=== PATIENT | female | born 1955 | race Caucasian/White ===

== ENCOUNTER 2016-08-04 09:35 | Emergency (ER) | payer OTHER ==
[~2016-08-04] VITALS: Ht 157.5 cm; Wt 106.6 kg
--- NOTE | 2016-08-04 09:46 | ED INFLUENZA/URI COMPLAINT ---
History of Present Illness General Chief Complaint: Dyspnea (COPD, CHF, Other) Stated Complaint: SOB/DIZZY Source: patient, family, old records Exam Limitations: no limitations Allergies Coded Allergies: Penicillins (UNKNOWN 08/04/16) Triage Note: PT TO ED FOR ASTHMA EXACERBATION, +SMOKER, REPORTING SHE USED HER INAHLER THIS MORNING WITH NO RELEF. SPEAKING IN FULL, CLEAR SENTENCES IN TRIAGE, 02 SAT 97%. HPI: This is a 61-year-old female with past medical history of asthma and COPD who presented to the emergency department the morning of 08/04/2016 complaining of shortness of breath and cough. Patient endorses that her symptoms began 4 days ago and she is becoming increasingly dyspneic. She also endorses dyspnea on exertion. She was started on an MARIVEL inhibitor however has had to stop this owing to significant side effects. She denies any fever nausea vomiting although does endorse subjective chills. Also endorses decreased appetite. She is a current every day smoker. (PAIGE VERAS,TIMOTHY) Vital Signs & Intake/Output Vital Signs & Intake/Output Vital Signs Date Time Temp Pulse Resp B/P B/P Pulse O2 O2 Flow FiO2 Mean Ox Delivery Rate 08/04 1117 98.6 76 18 145/84 98 Room Air 08/04 1025 95 08/04 0944 97.9 82 18 161/75 97 Room Air Reconcile Medications Albuterol Sulfate (Proair Hfa) 90 MCG HFA.AER.AD 2 PUF INH Q4-6 PRN PRN SHORTNESS OF BREATH (Reported) Albuterol Sulfate (Proair Hfa) 90 MCG HFA.AER.AD 2 PUF INH Q4-6 PRN PRN SOB Fluticasone/Salmeterol (Advair 500-50 Diskus) 500 MCG-50 MCG/DOSE BLST.W.DEV 1 PUF INH BID BREATHING PROBLEMS (Reported) Oxycodone HCl 30 MG TABLET 1 TAB PO 3-4XDP PAIN (Reported) Prednisone 10 MG TABLET 1 TAB PO BID COPD Exacerbation on 08/05 take 5 tablets on 08/06 take 4 tablets on 08/07 take 3 tablets on 08/08 take 2 tablets on 08/09 take 1 tablet and then stop Triage Nurses Notes Reviewed? yes LMP (ages 10-50): post menopausal : No Patient currently breastfeeds: No (LESLIE VERASMESHA) Past History Travel History Traveled to [place] past 21 day No Medical History Any Pertinent Medical History? 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 No (MESHA NELSON MD) Review of Systems Review of Systems Constitutional: Reports: chills. Denies: diaphoresis, fever, malaise, weakness. Respiratory: Reports: cough, short of breath. Denies: hemoptysis, orthopnea, sputum production, stridor. Cardiovascular: Denies: chest pain, edema, orthopena, palpitations. GI: Denies: abdominal pain, bloating, constipation, diarrhea, distention. Genitourinary: Denies: discharge, dysuria, frequency, hematuria, hesitation, nocturia. Musculoskeletal: Denies: back pain, gout, joint pain, joint swelling, muscle pain. Skin: Denies: change in skin color, change in hair/nails, dryness, erythema, jaundice, lesions. (TIMOTHY GIBSON MD) Review of Systems EENTM: Reports: no symptoms. Neurological/Psychological: Reports: no symptoms. Hematologic/Endocrine: Reports: no symptoms. Immunologic/Allergic: Reports: no symptoms. All Other Systems: Reviewed and Negative (MESHA NELSON MD) Physical Exam Physical Exam General Appearance: well developed/nourished, no apparent distress, alert, awake Head: atraumatic Eyes: Bilateral: PERRL. Respiratory: rhonchi (Mild Rhonchi), wheezing, Increased Breath Sounds Cardiovascular: regular rate/rhythm Gastrointestinal: normal bowel sounds, soft, non-tender Extremities: Edema 1+ Neurologic/Psych: no motor/sensory deficits, awake, alert, oriented x 3 (TIMOTHY GIBSON MD) Physical Exam Ears, Nose, Throat: normal ENT inspection, moist mucous membrane Neck: normal inspection, supple, full range of motion, no midline tenderness Back: normal inspection, normal range of motion Reflexes: 2+: bicep (R), bicep (L). Skin: intact, normal color Lymphatic: no anterior cervical brittany Core Measures Severe Sepsis Present: No Septic Shock Present: No (MESHA NELSON MD) Progress Plan of Care: Orders Procedure Date/time Status AEROSOL (GEN) 08/04 1033 Complete Initial ED EKG: normal axis (TIMOTHY GIBSON MD) Differential Diagnosis: influenza, pneumonia, sinusitis Diagnostic Imaging: Viewed by Me: Radiology Read. Discussed w/RAD: Radiology Read. CXR Impression: no acute abnormality, no infiltrates (MESHA NELSON MD) Departure Departure Disposition: HOME OR SELF CARE Condition: Stable Clinical Impression Primary Impression: COPD exacerbation Referrals: CHIRAG VERAS,DOMI Avilez (PCP/Family) Additional Instructions: Please follow-up with your primary care physician in the next 24 - 48 hours. Please ensure he speak with your primary care physician regarding starting you on a blood pressure medication. Please also inform your primary care physician that he may benefit from referral to sql etl developer for paroxysmal nocturnal dyspnea. Should your symptoms worsen and you develop fever, chills, nausea or vomiting, present to the emergency department for additional follow-up. Please take medications as prescribed. Please maintain hydration with warm fluids. Departure Forms: Customer Survey General Discharge Information Prescriptions: Current Visit Scripts Prednisone 1 TAB PO BID #15 TAB on 08/05 take 5 tablets on 08/06 take 4 tablets on 08/07 take 3 tablets on 08/08 take 2 tablets on 08/09 take 1 tablet and then stop Albuterol Sulfate (Proair Hfa) 2 PUF INH Q4-6 PRN PRN SOB #1 INHAL (TIMOTHY GIBSON MD) Resident Co-Sign Statement Statement: ED Attending supervision documentation- x I saw and evaluated the patient. I have also reviewed all the pertinent lab results and diagnostic results. I agree with the findings and the plan of care as documented in the Resident's documentation. [] I have reviewed the ED Record and agree with the Resident's documentation. [] Additions or exceptions (if any) to the Resident's note and plan are summarized below: [] (MESHA NELSON MD)
[2016-08-04] MEDS ORDERED: PROAIR HFA8.5 GM INH ×2 (10:04→11:12)
[2016-08-04] MEDS ORDERED: OXYCODONE HCL30 M1 PO (10:04)
[2016-08-04] MEDS ORDERED: ADVAIR 500-501 EACH INH (10:04)
--- NOTE | 2016-08-04 10:50 | RADIOLOGY REPORT ---
EXAMINATION: XR CHEST CLINICAL INFORMATION: Shortness of breath, dyspnea on exertion and increased breath sounds. COMPARISON: Chest radiograph dated 06/20/[address] 08/01/2014. TECHNIQUE: 2 views of the chest were obtained. FINDINGS: The heart and pulmonary vessels appear normal. There is no evidence of CHF. No infiltrates, effusions or lung masses are seen. Degenerative changes are present in the spine. Compared to the prior study, clearing of the left mid lung density. IMPRESSION: No acute intrathoracic disease.
[2016-08-04] MEDS ORDERED: PREDNISONE10 M2 PO (11:06)
[2016-08-04 11:17] VITALS: BP 145/84
== END 2016-08-04 11:18 ==
LOC: ERH 09:35
DX: J44.1 Chronic obstructive pulmonary disease with (acute) exacerbation (principal); Z72.0 Tobacco use
CPT/HCPCS: 1263